=== PATIENT | male | born 1965 | race African-American/Black ===

== ENCOUNTER 2017-07-24 11:50 | Inpatient (IN) | payer OTHER ==
[2017-07-24 13:15] VITALS: BMI 29.0
[2017-07-24] MEDS ORDERED: MENTHOL/PHENOL 1 EACH UD MM PRN (16:29)
[2017-07-24] MEDS ORDERED: METHADONE HCL 10 MG TABLET (FOR DETOX USE ONLY) PO ONE ×2 (16:29→23:00)
[2017-07-24] MEDS ORDERED: MAG HYDROX/AL HYDROX/SIMETH 30 ML UNIT-DOSE CUP PO PRN (16:29)
[2017-07-24] MEDS ORDERED: MAGNESIUM CITRATE 300 ML BOTTLE PO PRN (16:29)
[2017-07-24] MEDS ORDERED: MAGNESIUM HYDROX 2400MG/30ML ORAL SUSPENSION 30 ML CUP PO PRN (16:29)
[2017-07-24] MEDS ORDERED: IBUPROFEN 400 MG TABLET (FP) PO PRN (16:29)
[2017-07-24] MEDS ORDERED: LOPERAMIDE HCL 2 MG CAPSULE PO PRN (16:29)
[2017-07-24] MEDS ORDERED: ACETAMINOPHEN 325 MG TABLET (FP) PO PRN (16:29)
[2017-07-24] MEDS ORDERED: NICOTINE POLACRILEX 2 MG GUM BUC PRN (16:29)
[2017-07-24] MEDS ORDERED: P-EPHED 60MG/TRIPROLIDI 2.5MG TABLET PO PRN (16:29)
[2017-07-24] MEDS ORDERED: guaiFENesin/D-METHORPHAN HB 10 ML UNIT-DOSE CUPS PO PRN (16:29)
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
[2017-07-24] MEDS ORDERED: ALBUTEROL SO4 18 GM HFA INHALER IH PRN (16:31)
[2017-07-24] MEDS: ASPIRIN 81 MG CHEWABLE TABLETS PO SCH (17:52)
[2017-07-24] MEDS: diazePAM 5 MG TABLET PO PRN ×2 (17:52→22:07)
[2017-07-24] MEDS: NICOTINE 14 MG/24 HOURS TOPICAL PATCH TD SCH (17:52)
[2017-07-24] MEDS: THIAMINE HCL 100 MG TABLET (FP) PO SCH (22:07)
[2017-07-24] MEDS: BRIMONIDINE TARTRATE 0.2% OPHTHALMIC 5 ML BOTTLE OU SCH (22:07)
[2017-07-24] MEDS: LATANOPROST 0.005% OPHTH SOLN 2.5ML BOTTLE OU SCH (22:09)
[2017-07-25 03:49] LABS: URINE APPEARANCE CLEAR; URINE BILIRUBIN NEGATIVE (NEGATIVE); URINE BLOOD NEGATIVE (NEGATIVE); URINE COLOR LTYELLOW; URINE GLUCOSE (UA) 1+ (NEGATIVE); URINE KETONE NEGATIVE (NEGATIVE); URINE LEUK ESTERASE NEGATIVE (NEGATIVE); URINE NITRITE NEGATIVE (NEGATIVE); URINE PROTEIN NEGATIVE (NEGATIVE); URINE UROBILINOGEN NEGATIVE mg/dL (0.2-1.0)
[2017-07-25] MEDS: metFORMIN HCL 500 MG TABLET (FP) PO SCH ×2 (06:34→17:29)
[2017-07-25] MEDS: glipiZIDE 10 MG TABLET (FP) PO SCH ×2 (06:34→17:29)
[2017-07-25] MEDS ORDERED: diphenhydrAMINE HCL 25 MG CAPSULE (FP) PO ONE (09:24)
[2017-07-25] MEDS ORDERED: METHADONE HCL 10 MG TABLET (FOR DETOX USE ONLY) PO ONE (10:00)
[2017-07-25] MEDS ORDERED: BACITRACIN 15 GM TUBE TOPICAL OINTMENT TP SCH (10:00)
[2017-07-25 10:15] LABS: ALBUMIN 2.9 g/dl (3.4-5.0); ANION GAP 6 (8-16); BLOOD UREA NITROGEN 14 mg/dL (7-18); CALCIUM 8.1 mg/dL (8.5-10.1); CHLORIDE 106 mmol/L (98-107); CO2 28 mmol/L (21-32); CREATININE 0.8 mg/dL (0.7-1.3); SGOT/AST 17 U/L (15-37); SGPT/ALT 22 U/L (12-78); SODIUM 140 mmol/L (136-145)
[2017-07-25 10:17] LABS: ALK PHOS 72 U/L (45-117); BILIRUBIN,TOTAL 0.3 mg/dL (0.2-1.0); TOT PROT 6.9 g/dl (6.4-8.2)
[2017-07-25 10:18] LABS: HEMOGLOBIN 10.4 GM/dL (11.7-16.9); MCH 30.6 pg (25.7-33.7); MCHC 32.4 g/dl (32.0-35.9); MEAN CELL VOLUME 94.4 fl (80-96); MEAN PLT VOLUME 9.1 fl (7.5-11.1); PLATELET COUNT 214 K/MM3 (134-434); RBC 3.39 M/mm3 (4.00-5.60); RDW 16.4 % (11.9-15.9); WHITE BLOOD COUNT 7.5 K/mm3 (4.0-10.0)
[2017-07-25] MEDS: ASPIRIN 81 MG CHEWABLE TABLETS PO SCH (10:22)
[2017-07-25] MEDS: BRIMONIDINE TARTRATE 0.2% OPHTHALMIC 5 ML BOTTLE OU SCH ×2 (10:22→22:11)
[2017-07-25] MEDS: PRENATAL VITAMINS W/ FOLIC ACID TABLET (FP) PO SCH (10:22)
[2017-07-25] MEDS: BACITRACIN 0.9 GM PACKET TP SCH ×2 (10:22→22:06)
[2017-07-25] MEDS: NICOTINE 14 MG/24 HOURS TOPICAL PATCH TD SCH (10:23)
[2017-07-25 10:39] LABS: GLUCOSE,RANDOM 38 mg/dL (74-106)
--- NOTE | 2017-07-25 11:29 | EKG ---
Test Reason : Blood Pressure : / mmHG Vent. Rate : 078 BPM Atrial Rate : 078 BPM P-R Int : 132 ms QRS Dur : 080 ms QT Int : 396 ms P-R-T Axes : 074 058 046 degrees QTc Int : 451 ms NORMAL SINUS RHYTHM NORMAL ECG NO PREVIOUS ECGS AVAILABLE BASELINE ARTIFACT Confirmed by GERDA MCPHERSON, GEORGE ([id number]) on 07/25/2017 11:28:23 AM Referred By: Confirmed By:GEORGE LORENZ MD
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
[2017-07-25] MEDS: HYDROCORTISONE 1% TOPICAL OINT 30 GM TUBE TP SCH ×2 (12:27→22:06)
--- NOTE | 2017-07-25 15:24 | PN ---
S COWS - Scale Resting Pulse: 0= [place] 80 or Below Sweatin= No chills or Flushing Restless Observation: 1= Difficult to Sit Still Pupil Size: 0= Normal to Room Light Bone or Joint Aches: 2= Severe Diffuse Aches Runny Nose/ Eye Tearin= None GI Upset > 30mins: 1= Stomach Cramp Tremor Observation of Outstretched Hands: 2= Slight Tremor Visible Yawning Observation: 2= >3x During Session Anxiety or Irritability: 2=Irritable/Anxious Goose Flesh Skin: 3=Piloerection COWS Score: 13 BHS Progress Note (SOAP) Subjective: Anxious, Tremors, Body Aches. Objective: PT. A & O X 3, OBSERVED AMBULATING ON UNIT. NO ACUTE DISTRESS. 07/25/17 15:22 Vital Signs Temperature 97.8 F 07/25/17 13:55 Pulse Rate 80 07/25/17 13:55 Respiratory Rate 17 07/25/17 13:55 Blood Pressure 109/59 07/25/17 13:55 O2 Sat by Pulse Oximetry (%) Laboratory Tests 07/24/17 07/24/17 07/25/17 14:04 23:31 05:13 WBC RBC Hgb Hct MCV MCH MCHC RDW Plt Count MPV Sodium Potassium Chloride Carbon Dioxide Anion Gap BUN Creatinine Creat Clearance w eGFR POC Glucometer 129 144 Random Glucose Calcium Total Bilirubin AST ALT Alkaline Phosphatase Total Protein Albumin Urine Color Ltyellow Urine Appearance Clear Urine pH 5.0 Ur Specific [place] 1.010 Urine Protein Negative Urine Glucose (UA) 1+ H Urine Ketones Negative Urine Blood Negative Urine Nitrite Negative Urine Bilirubin Negative Urine Urobilinogen Negative Ur Leukocyte Esterase Negative RPR Titer 07/25/17 07/25/17 07/25/17 08:00 08:00 08:00 WBC 7.5 RBC 3.39 L D Hgb 10.4 L D Hct 32.0 L D MCV 94.4 MCH 30.6 MCHC 32.4 RDW 16.4 H D Plt Count 214 D MPV 9.1 Sodium 140 Potassium 4.0 Chloride 106 Carbon Dioxide 28 Anion Gap 6 L BUN 14 Creatinine 0.8 Creat Clearance w eGFR > 60 POC Glucometer Random Glucose 38 L* D Calcium 8.1 L Total Bilirubin 0.3 AST 17 ALT 22 D Alkaline Phosphatase 72 D Total Protein 6.9 Albumin 2.9 L Urine Color Urine Appearance Urine pH Ur Specific [place] Urine Protein Urine Glucose (UA) Urine Ketones Urine Blood Urine Nitrite Urine Bilirubin Urine Urobilinogen Ur Leukocyte Esterase RPR Titer Nonreactive LABS NOTED. ADMISSION RANDOM GLUCOSE LEVEL AND AM FASTING BGM NOTED. PATIENT DISPLAYING NO OVERT SYMPTOMS OF HYPOGLYCEMIA AT THIS TIME. PATIENT A & O X 3, ABLE TO AMBULATE UNASSISTED ON UNIT AND WITHOUT DIFFICULTY. 07/25/17 16:59 Assessment: 07/25/17 15:23 WITHDRAWAL SYMPTOMS. Plan: CONTINUE DETOX. FASTING GLUCOSE LEVEL TOMORROW AM. CONTINUE TO MONITOR BGM'S.
[2017-07-25] MEDS: diazePAM 5 MG TABLET PO PRN ×2 (17:31→22:07)
[2017-07-25] MEDS: QUEtiapine FUMARATE 50 MG TABLET PO SCH (22:06)
[2017-07-25] MEDS: LATANOPROST 0.005% OPHTH SOLN 2.5ML BOTTLE OU SCH (22:07)
[2017-07-25] MEDS: DIVALPROEX SODIUM 500 MG TABLET E.C. PO SCH (22:07)
[2017-07-25] MEDS: THIAMINE HCL 100 MG TABLET (FP) PO SCH (22:08)
[2017-07-26] MEDS: glipiZIDE 10 MG TABLET (FP) PO SCH ×2 (06:24→17:16)
[2017-07-26] MEDS: metFORMIN HCL 500 MG TABLET (FP) PO SCH ×2 (06:24→17:16)
[2017-07-26] MEDS ORDERED: METHADONE HCL 5 MG TABLET (FOR DETOX USE ONLY) PO ONE (10:00)
[2017-07-26] MEDS: BRIMONIDINE TARTRATE 0.2% OPHTHALMIC 5 ML BOTTLE OU SCH ×2 (10:09→22:23)
[2017-07-26] MEDS: BACITRACIN 0.9 GM PACKET TP SCH ×2 (10:09→22:23)
[2017-07-26] MEDS: NICOTINE 14 MG/24 HOURS TOPICAL PATCH TD SCH (10:10)
[2017-07-26] MEDS: ASPIRIN 81 MG CHEWABLE TABLETS PO SCH (10:10)
[2017-07-26] MEDS: HYDROCORTISONE 1% TOPICAL OINT 30 GM TUBE TP SCH ×2 (10:10→22:23)
[2017-07-26] MEDS: DIVALPROEX SODIUM 500 MG TABLET E.C. PO SCH ×2 (10:10→22:23)
[2017-07-26] MEDS: PRENATAL VITAMINS W/ FOLIC ACID TABLET (FP) PO SCH (10:10)
--- NOTE | 2017-07-26 16:12 | PN ---
S COWS - Scale Resting Pulse: 1= [place] 81-100 Sweatin= Beads of Sweat on Face Restless Observation: 3= Extraneous Movement Pupil Size: 0= Normal to Room Light Bone or Joint Aches: 2= Severe Diffuse Aches Runny Nose/ Eye Tearin= Runny Nose/Eyes GI Upset > 30mins: 2= Nausea/Diarrhea Tremor Observation of Outstretched Hands: 2= Slight Tremor Visible Yawning Observation: 0= None Anxiety or Irritability: 2=Irritable/Anxious Goose Flesh Skin: 0=Smooth Skin COWS Score: 17 S Progress Note (SOAP) Subjective: Sweating, tremor, chills, N/D Objective: 07/26/17 16:08 Last Vital Signs Temp Pulse Resp BP Pulse Ox 95.8 F L 93 H 18 124/72 07/26/17 13:36 07/26/17 13:36 07/26/17 13:36 07/26/17 13:36 Laboratory Tests 07/24/17 07/24/17 07/25/17 14:04 23:31 05:13 WBC RBC Hgb Hct MCV MCH MCHC RDW Plt Count MPV Sodium Potassium Chloride Carbon Dioxide Anion Gap BUN Creatinine Creat Clearance w eGFR POC Glucometer 129 144 Random Glucose Fasting Glucose Calcium Total Bilirubin AST ALT Alkaline Phosphatase Total Protein Albumin Urine Color Ltyellow Urine Appearance Clear Urine pH 5.0 Ur Specific [place] 1.010 Urine Protein Negative Urine Glucose (UA) 1+ H Urine Ketones Negative Urine Blood Negative Urine Nitrite Negative Urine Bilirubin Negative Urine Urobilinogen Negative Ur Leukocyte Esterase Negative Valproic Acid RPR Titer 07/25/17 07/25/17 07/25/17 08:00 08:00 08:00 WBC 7.5 RBC 3.39 L D Hgb 10.4 L D Hct 32.0 L D MCV 94.4 MCH 30.6 MCHC 32.4 RDW 16.4 H D Plt Count 214 D MPV 9.1 Sodium 140 Potassium 4.0 Chloride 106 Carbon Dioxide 28 Anion Gap 6 L BUN 14 Creatinine 0.8 Creat Clearance w eGFR > 60 POC Glucometer Random Glucose 38 L* D Fasting Glucose Calcium 8.1 L Total Bilirubin 0.3 AST 17 ALT 22 D Alkaline Phosphatase 72 D Total Protein 6.9 Albumin 2.9 L Urine Color Urine Appearance Urine pH Ur Specific [place] Urine Protein Urine Glucose (UA) Urine Ketones Urine Blood Urine Nitrite Urine Bilirubin Urine Urobilinogen Ur Leukocyte Esterase Valproic Acid RPR Titer Nonreactive 07/26/17 07/26/17 07/26/17 05:29 07:45 07:45 WBC RBC Hgb Hct MCV MCH MCHC RDW Plt Count MPV Sodium Potassium Chloride Carbon Dioxide Anion Gap BUN Creatinine Creat Clearance w eGFR POC Glucometer 116 Random Glucose Fasting Glucose 173 H Calcium Total Bilirubin AST ALT Alkaline Phosphatase Total Protein Albumin Urine Color Urine Appearance Urine pH Ur Specific [place] Urine Protein Urine Glucose (UA) Urine Ketones Urine Blood Urine Nitrite Urine Bilirubin Urine Urobilinogen Ur Leukocyte Esterase Valproic Acid 5.395 L RPR Titer Labs noted: hyperglycemia Assessment: 07/26/17 16:09 Withdrawal symptoms Noted with hyperglycemia secondary to DMT2 Plan: Continue detox Encouraged to drink lots of water for hydration Hyperglycemia secondary to DMT2: continue diabetic regimen, encouraged adherence to diabetic diet
[2017-07-26] MEDS: THIAMINE HCL 100 MG TABLET (FP) PO SCH (22:22)
[2017-07-26] MEDS: diazePAM 5 MG TABLET PO PRN (22:22)
[2017-07-26] MEDS: QUEtiapine FUMARATE 50 MG TABLET PO SCH (22:23)
[2017-07-26] MEDS: LATANOPROST 0.005% OPHTH SOLN 2.5ML BOTTLE OU SCH (22:24)
[2017-07-27] MEDS: metFORMIN HCL 500 MG TABLET (FP) PO SCH ×2 (07:18→17:16)
[2017-07-27] MEDS: glipiZIDE 10 MG TABLET (FP) PO SCH ×2 (07:18→17:17)
[2017-07-27] MEDS: PRENATAL VITAMINS W/ FOLIC ACID TABLET (FP) PO SCH (09:35)
[2017-07-27] MEDS: diazePAM 5 MG TABLET PO PRN (09:35)
[2017-07-27] MEDS: DIVALPROEX SODIUM 500 MG TABLET E.C. PO SCH ×2 (09:35→22:27)
[2017-07-27] MEDS: ASPIRIN 81 MG CHEWABLE TABLETS PO SCH (09:35)
[2017-07-27] MEDS: BACITRACIN 0.9 GM PACKET TP SCH ×2 (09:35→22:27)
[2017-07-27] MEDS: BRIMONIDINE TARTRATE 0.2% OPHTHALMIC 5 ML BOTTLE OU SCH ×2 (09:35→22:28)
[2017-07-27] MEDS: HYDROCORTISONE 1% TOPICAL OINT 30 GM TUBE TP SCH ×2 (09:36→22:28)
[2017-07-27] MEDS: NICOTINE 14 MG/24 HOURS TOPICAL PATCH TD SCH (09:37)
[2017-07-27] MEDS ORDERED: METHADONE HCL 5 MG TABLET (FOR DETOX USE ONLY) PO ONE (10:00)
--- NOTE | 2017-07-27 14:04 | PN ---
BHS Progress Note (SOAP) Subjective: DECREASED ANXIETY,SWEATS,IRRITABILITY. ALERT O X 3. Objective: 07/27/17 16:39 Vital Signs Temperature 97.7 F 07/27/17 13:46 Pulse Rate 92 H 07/27/17 13:46 Respiratory Rate 18 07/27/17 13:46 Blood Pressure 119/68 07/27/17 13:46 O2 Sat by Pulse Oximetry (%) Laboratory Last Values WBC 7.5 K/mm3 (4.0-10.0) 07/25/17 08:00 RBC 3.39 M/mm3 (4.00-5.60) L D 07/25/17 08:00 Hgb 10.4 GM/dL (11.7-16.9) L D 07/25/17 08:00 Hct 32.0 % (35.4-49) L D 07/25/17 08:00 MCV 94.4 fl (80-96) 07/25/17 08:00 MCH 30.6 pg (25.7-33.7) 07/25/17 08:00 MCHC 32.4 g/dl (32.0-35.9) 07/25/17 08:00 RDW 16.4 % (11.9-15.9) H D 07/25/17 08:00 Plt Count 214 K/MM3 (134-434) D 07/25/17 08:00 MPV 9.1 fl (7.5-11.1) 07/25/17 08:00 Sodium 140 mmol/L (136-145) 07/25/17 08:00 Potassium 4.0 mmol/L (3.5-5.1) 07/25/17 08:00 Chloride 106 mmol/L (98-107) 07/25/17 08:00 Carbon Dioxide 28 mmol/L (21-32) 07/25/17 08:00 Anion Gap 6 (8-16) L 07/25/17 08:00 BUN 14 mg/dL (7-18) 07/25/17 08:00 Creatinine 0.8 mg/dL (0.7-1.3) 07/25/17 08:00 Creat Clearance w eGFR > 60 (>60) 07/25/17 08:00 POC Glucometer 144 UNITS (80-120) 07/27/17 05:40 Random Glucose 38 mg/dL (74-106) L* D 07/25/17 08:00 Fasting Glucose 173 mg/dL (70-105) H 07/26/17 07:45 Calcium 8.1 mg/dL (8.5-10.1) L 07/25/17 08:00 Total Bilirubin 0.3 mg/dL (0.2-1.0) 07/25/17 08:00 AST 17 U/L (15-37) 07/25/17 08:00 ALT 22 U/L (12-78) D 07/25/17 08:00 Alkaline Phosphatase 72 U/L (45-117) D 07/25/17 08:00 Total Protein 6.9 g/dl (6.4-8.2) 07/25/17 08:00 Albumin 2.9 g/dl (3.4-5.0) L 07/25/17 08:00 Urine Color Ltyellow 07/24/17 23:31 Urine Appearance Clear 07/24/17 23:31 Urine pH 5.0 (5.0-8.0) 07/24/17 23:31 Ur Specific [place] 1.010 (1.001-1.035) 07/24/17 23:31 Urine Protein Negative (NEGATIVE) 07/24/17 23:31 Urine Glucose (UA) 1+ (NEGATIVE) H 07/24/17 23:31 Urine Ketones Negative (NEGATIVE) 07/24/17 23:31 Urine Blood Negative (NEGATIVE) 07/24/17 23:31 Urine Nitrite Negative (NEGATIVE) 07/24/17 23:31 Urine Bilirubin Negative (NEGATIVE) 07/24/17 23:31 Urine Urobilinogen Negative mg/dL (0.2-1.0) 07/24/17 23:31 Ur Leukocyte Esterase Negative (NEGATIVE) 07/24/17 23:31 Valproic Acid 5.395 ug/ml (50-100) L 07/26/17 07:45 RPR Titer Nonreactive (NONREACTIVE) 07/25/17 08:00 Assessment: 07/27/17 16:39 WITHDRAWAL SX Plan: CONTINUE DETOX
[2017-07-27] MEDS: THIAMINE HCL 100 MG TABLET (FP) PO SCH (22:27)
[2017-07-27] MEDS: QUEtiapine FUMARATE 50 MG TABLET PO SCH (22:27)
[2017-07-27] MEDS: LATANOPROST 0.005% OPHTH SOLN 2.5ML BOTTLE OU SCH (22:28)
[2017-07-28] MEDS: metFORMIN HCL 500 MG TABLET (FP) PO SCH ×2 (07:02→16:53)
[2017-07-28] MEDS: glipiZIDE 10 MG TABLET (FP) PO SCH ×2 (07:03→16:54)
[2017-07-28] MEDS ORDERED: METHADONE HCL 10 MG TABLET (FOR DETOX USE ONLY) PO ONE (10:00)
[2017-07-28] MEDS: ASPIRIN 81 MG CHEWABLE TABLETS PO SCH (10:09)
[2017-07-28] MEDS: BACITRACIN 0.9 GM PACKET TP SCH ×2 (10:09→22:08)
[2017-07-28] MEDS: PRENATAL VITAMINS W/ FOLIC ACID TABLET (FP) PO SCH (10:09)
[2017-07-28] MEDS: BRIMONIDINE TARTRATE 0.2% OPHTHALMIC 5 ML BOTTLE OU SCH ×2 (10:09→22:08)
[2017-07-28] MEDS: DIVALPROEX SODIUM 500 MG TABLET E.C. PO SCH ×2 (10:09→22:08)
[2017-07-28] MEDS: NICOTINE 14 MG/24 HOURS TOPICAL PATCH TD SCH (10:10)
[2017-07-28] MEDS: HYDROCORTISONE 1% TOPICAL OINT 30 GM TUBE TP SCH ×2 (10:10→22:08)
--- NOTE | 2017-07-28 11:44 | PN ---
BHS Progress Note (SOAP) Subjective: DECREASED ANXIETY,TREMORS. C/O SWEATS AND LEFT LEG PAIN. Objective: 07/28/17 11:43 Vital Signs Temperature 98.6 F 07/28/17 09:54 Pulse Rate 99 H 07/28/17 09:54 Respiratory Rate 18 07/28/17 09:54 Blood Pressure 137/70 07/28/17 09:54 O2 Sat by Pulse Oximetry (%) Laboratory Last Values WBC 7.5 K/mm3 (4.0-10.0) 07/25/17 08:00 RBC 3.39 M/mm3 (4.00-5.60) L D 07/25/17 08:00 Hgb 10.4 GM/dL (11.7-16.9) L D 07/25/17 08:00 Hct 32.0 % (35.4-49) L D 07/25/17 08:00 MCV 94.4 fl (80-96) 07/25/17 08:00 MCH 30.6 pg (25.7-33.7) 07/25/17 08:00 MCHC 32.4 g/dl (32.0-35.9) 07/25/17 08:00 RDW 16.4 % (11.9-15.9) H D 07/25/17 08:00 Plt Count 214 K/MM3 (134-434) D 07/25/17 08:00 MPV 9.1 fl (7.5-11.1) 07/25/17 08:00 Sodium 140 mmol/L (136-145) 07/25/17 08:00 Potassium 4.0 mmol/L (3.5-5.1) 07/25/17 08:00 Chloride 106 mmol/L (98-107) 07/25/17 08:00 Carbon Dioxide 28 mmol/L (21-32) 07/25/17 08:00 Anion Gap 6 (8-16) L 07/25/17 08:00 BUN 14 mg/dL (7-18) 07/25/17 08:00 Creatinine 0.8 mg/dL (0.7-1.3) 07/25/17 08:00 Creat Clearance w eGFR > 60 (>60) 07/25/17 08:00 POC Glucometer 116 UNITS (80-120) 07/28/17 05:37 Random Glucose 38 mg/dL (74-106) L* D 07/25/17 08:00 Fasting Glucose 173 mg/dL (70-105) H 07/26/17 07:45 Calcium 8.1 mg/dL (8.5-10.1) L 07/25/17 08:00 Total Bilirubin 0.3 mg/dL (0.2-1.0) 07/25/17 08:00 AST 17 U/L (15-37) 07/25/17 08:00 ALT 22 U/L (12-78) D 07/25/17 08:00 Alkaline Phosphatase 72 U/L (45-117) D 07/25/17 08:00 Total Protein 6.9 g/dl (6.4-8.2) 07/25/17 08:00 Albumin 2.9 g/dl (3.4-5.0) L 07/25/17 08:00 Urine Color Ltyellow 07/24/17 23:31 Urine Appearance Clear 07/24/17 23:31 Urine pH 5.0 (5.0-8.0) 07/24/17 23:31 Ur Specific [place] 1.010 (1.001-1.035) 07/24/17 23:31 Urine Protein Negative (NEGATIVE) 07/24/17 23:31 Urine Glucose (UA) 1+ (NEGATIVE) H 07/24/17 23:31 Urine Ketones Negative (NEGATIVE) 07/24/17 23:31 Urine Blood Negative (NEGATIVE) 07/24/17 23:31 Urine Nitrite Negative (NEGATIVE) 07/24/17 23:31 Urine Bilirubin Negative (NEGATIVE) 07/24/17 23:31 Urine Urobilinogen Negative mg/dL (0.2-1.0) 07/24/17 23:31 Ur Leukocyte Esterase Negative (NEGATIVE) 07/24/17 23:31 Valproic Acid 5.395 ug/ml (50-100) L 07/26/17 07:45 RPR Titer Nonreactive (NONREACTIVE) 07/25/17 08:00 Assessment: 07/28/17 11:43 WITHDRAWAL SX Plan: CONTINUE DETOX MOTRIN PRN
[2017-07-28] MEDS: THIAMINE HCL 100 MG TABLET (FP) PO SCH (22:08)
[2017-07-28] MEDS: QUEtiapine FUMARATE 50 MG TABLET PO SCH (22:08)
[2017-07-28] MEDS: LATANOPROST 0.005% OPHTH SOLN 2.5ML BOTTLE OU SCH (22:09)
[2017-07-29] MEDS ORDERED: METHADONE HCL 5 MG TABLET (FOR DETOX USE ONLY) PO ONE (06:00)
[2017-07-29] MEDS: metFORMIN HCL 500 MG TABLET (FP) PO SCH (07:27)
[2017-07-29] MEDS: glipiZIDE 10 MG TABLET (FP) PO SCH (07:28)
--- NOTE | 2017-07-29 08:55 | DS ---
[facility] Detox Discharge Summary Admission Date: 07/24/17 Discharge Date: 07/29/17 - History Additional Comments: DETOX COMPLETED. ALERT O X 3. Pertinent Past History: SEE DX BELOW - Physical Exam Results Vital Signs: Vital Signs Temperature 97 F L 07/29/17 06:12 Pulse Rate 94 H 07/29/17 06:12 Respiratory Rate 18 07/29/17 06:12 Blood Pressure 141/75 07/29/17 06:12 O2 Sat by Pulse Oximetry (%) Pertinent Admission Physical Exam Findings: WITHDRAWAL SX - Treatment Hospital Course: Detox Protocol Followed, Detoxed Safely, Responded well, Discharged Condition Good - Medication Discharge Medications: Ambulatory Orders Divalproex [Depakote -] 500 mg PO BID 05/21/15 Brimonidine Tartrate [Alphagan 0.2% -] 1 drop OP BID 11/29/15 Risperidone [Risperdal] 2 mg PO BID 11/29/15 Albuterol Sulfate Inhaler - [Ventolin HFA Inhaler -] 2 inh IH Q4H PRN #1 inhaler 12/26/15 Aspirin [ASA -] 81 mg PO DAILY #30 tab.chew 12/26/15 Glipizide [Glucotrol -] 10 mg PO BIDAC #60 tablet 12/26/15 Latanoprost 0.005% Eye Drops [Xalatan 0.005% Eye Drops -] 1 drop OP HS #1 drops 12/26/15 Metformin HCl [Glucophage -] 500 mg PO BID@0700,1630 #60 tablet 12/26/15 Benztropine Mesylate [Cogentin -] 0.5 mg PO BID #30 tablet 12/27/15 Mirtazapine [Remeron -] 15 mg PO HS #30 tablet 12/27/15 Quetiapine Fumarate [Seroquel -] 300 mg PO HS 07/24/17 - Diagnosis (1) Opioid dependence with withdrawal Current Visit: Yes Status: Acute (2) Asthma Current Visit: Yes Status: Chronic (3) DM Diabetes mellitus type 2 Current Visit: Yes Status: Chronic (4) Nicotine dependence Current Visit: Yes Status: Acute Qualifiers: Nicotine product type: cigarettes Substance use status: in withdrawal Qualified Code(s): F17.213 - Nicotine dependence, cigarettes, with withdrawal (5) Cocaine dependence, uncomplicated Current Visit: Yes Status: Acute (6) HLD (hyperlipidemia) Current Visit: Yes Status: Chronic Qualifiers: Hyperlipidemia type: unspecified Qualified Code(s): E78.5 - Hyperlipidemia , unspecified (7) HTN (hypertension) Current Visit: Yes Status: Chronic Qualifiers: Hypertension type: essential hypertension Qualified Code(s): I10 - Essential (primary) hypertension - AMA Did Patient Leave Against Medical Advice: No
[2017-07-29 09:15] VITALS: BP 128/77; PULSE 96; TEMP 98.7
== END 2017-07-29 09:37 | disposition home or self-care (01) | DRG 773 ==
LOC: YASAS 11:50 → Y3N 16:23
PROVIDERS: ADMIT Internal Medicine; ATTEND Internal Medicine
PROC: HZ2ZZZZ Detoxification Services for Substance Abuse Treatment (ICD-10-PCS; principal; 2017-07-24)
DX: F11.23 Opioid dependence with withdrawal (principal); F14.20 Cocaine dependence, uncomplicated; F17.213 Nicotine dependence, cigarettes, with withdrawal; F32.9 Major depressive disorder, single episode, unspecified; F20.0 Paranoid schizophrenia; I10 Essential (primary) hypertension; E78.5 Hyperlipidemia, unspecified; E11.65 Type 2 diabetes mellitus with hyperglycemia; J45.909 Unspecified asthma, uncomplicated; R76.11 Nonspecific reaction to tuberculin skin test without active tuberculosis; H40.9 Unspecified glaucoma; G47.00 Insomnia, unspecified; Z88.0 Allergy status to penicillin; Z91.018 Allergy to other foods; Z79.84 Long term (current) use of oral hypoglycemic drugs
CPT/HCPCS: 36415; 71046-TC; 80053; 80164; 81003; 82947; 85027; 86593; 93005; 93010

== ENCOUNTER 2017-11-30 19:09 | Inpatient (IN) | payer OTHER ==
[2017-11-30 23:34] VITALS: BMI 27.3
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
[2017-12-01] MEDS ORDERED: ACETAMINOPHEN 325 MG TABLET (FP) PO PRN (01:38)
[2017-12-01] MEDS ORDERED: MAGNESIUM CITRATE 300 ML BOTTLE PO PRN (01:38)
[2017-12-01] MEDS ORDERED: NICOTINE POLACRILEX 2 MG GUM BC PRN (01:38)
[2017-12-01] MEDS ORDERED: chlordiazePOXIDE HCL 25 MG CAPSULE PO ONE (01:38)
[2017-12-01] MEDS ORDERED: MAGNESIUM HYDROX 2400MG/30ML ORAL SUSPENSION 30 ML CUP PO PRN (01:38)
[2017-12-01] MEDS ORDERED: MAG HYDROX/AL HYDROX/SIMETH 30 ML UNIT-DOSE CUP PO PRN (01:38)
[2017-12-01] MEDS ORDERED: MENTHOL/PHENOL 1 EACH UD MM PRN (01:38)
[2017-12-01] MEDS ORDERED: chlordiazePOXIDE HCL 25 MG CAPSULE PO PRN (01:38)
[2017-12-01] MEDS ORDERED: LOPERAMIDE HCL 2 MG CAPSULE PO PRN (01:38)
[2017-12-01] MEDS ORDERED: guaiFENesin/D-METHORPHAN HB 10 ML UNIT-DOSE CUPS PO PRN (01:38)
[2017-12-01] MEDS ORDERED: IBUPROFEN 400 MG TABLET (FP) PO PRN (01:38)
[2017-12-01] MEDS ORDERED: P-EPHED 60MG/TRIPROLIDI 2.5MG TABLET PO PRN (01:38)
[2017-12-01] MEDS ORDERED: ALBUTEROL SO4 18 GM HFA INHALER IH PRN (01:40)
[2017-12-01] MEDS: chlordiazePOXIDE HCL 25 MG CAPSULE PO SCH ×4 (05:55→22:16)
[2017-12-01 09:49] LABS: HEMATOCRIT 34.3 % (35.4-49); HEMOGLOBIN 11.7 GM/dL (11.7-16.9); MCH 31.5 pg (25.7-33.7); MCHC 34.2 g/dl (32.0-35.9); MEAN CELL VOLUME 92.1 fl (80-96); MEAN PLT VOLUME 8.6 fl (7.5-11.1); PLATELET COUNT 305 K/MM3 (134-434); RBC 3.72 M/mm3 (4.00-5.60); RDW 16.5 % (11.9-15.9); WHITE BLOOD COUNT 4.9 K/mm3 (4.0-10.0)
[2017-12-01 09:51] LABS: URINE APPEARANCE CLEAR; URINE BILIRUBIN NEGATIVE (<2.0 mg/dL); URINE COLOR LTYELLOW; URINE GLUCOSE (UA) NEGATIVE (NEGATIVE); URINE KETONE NEGATIVE (NEGATIVE); URINE LEUK ESTERASE NEGATIVE (NEGATIVE); URINE NITRITE NEGATIVE (NEGATIVE); URINE PROTEIN NEGATIVE (NEGATIVE)
[2017-12-01 10:02] LABS: CHLORIDE 108 mmol/L (98-107); POTASSIUM 3.9 mmol/L (3.5-5.1); SODIUM 144 mmol/L (136-145)
[2017-12-01] MEDS: PRENATAL VITAMINS W/ FOLIC ACID TABLET (FP) PO SCH (10:32)
[2017-12-01] MEDS: metFORMIN HCL 500 MG TABLET (FP) PO SCH ×2 (10:32→17:00)
[2017-12-01] MEDS: glipiZIDE 10 MG TABLET (FP) PO SCH ×2 (10:32→17:00)
[2017-12-01] MEDS: NICOTINE 14 MG/24 HOURS TOPICAL PATCH TD SCH (10:32)
[2017-12-01 10:38] LABS: ALBUMIN 2.8 g/dl (3.4-5.0); ALK PHOS 67 U/L (45-117); ANION GAP 8 (8-16); BILIRUBIN,TOTAL 0.3 mg/dL (0.2-1.0); BLOOD UREA NITROGEN 17 mg/dL (7-18); CALCIUM 8.1 mg/dL (8.5-10.1); CO2 28 mmol/L (21-32); CREATININE 0.9 mg/dL (0.7-1.3); GLUCOSE,RANDOM 121 mg/dL (74-106); SGOT/AST 20 U/L (15-37); SGPT/ALT 20 U/L (12-78); TOT PROT 6.9 g/dl (6.4-8.2)
[2017-12-01] MEDS: BRIMONIDINE TARTRATE 0.2% OPHTHALMIC 5 ML BOTTLE OU SCH ×2 (12:17→22:36)
--- NOTE | 2017-12-01 12:43 | PN ---
[facility] CIWA - CIWA Score Nausea/Vomitin-No Nausea/No Vomiting Muscle Tremors: 3 Anxiety: 3 Agitation: 2 Paroxysmal Sweats: 3 Orientation: 2-Disoriented Date<2 days Tacttile Disturbances: 2-Mild Itch/Numbness/Burn Auditory Disturbances: 0-None Visual Disturbances: 2-Mild Sensitivity Headache: 0-None Present CIWA-Ar Total Score: 17 BHS Progress Note (SOAP) Subjective: Tremors, Diarrhea, Sweating, Body Aches, Interrupted Sleep. Objective: PATIENT A & O X 2 (UNCERTAIN ABOUT CURRENT DAY / DATE). NO ACUTE DISTRESS. 12/01/17 12:41 Vital Signs Temperature 96.8 F L 12/01/17 10:44 Pulse Rate 80 12/01/17 10:44 Respiratory Rate 18 12/01/17 10:44 Blood Pressure 124/70 12/01/17 10:44 O2 Sat by Pulse Oximetry (%) Laboratory Tests 12/01/17 12/01/17 12/01/17 05:55 07:00 07:30 WBC RBC Hgb Hct MCV MCH MCHC RDW Plt Count MPV Sodium 144 Potassium 3.9 Chloride 108 H Carbon Dioxide 28 Anion Gap 8 BUN 17 D Creatinine 0.9 Creat Clearance w eGFR > 60 POC Glucometer 112 Random Glucose 121 H D Calcium 8.1 L Total Bilirubin 0.3 AST 20 ALT 20 Alkaline Phosphatase 67 Total Protein 6.9 Albumin 2.8 L Urine Color Ltyellow Urine Appearance Clear Urine pH 7.0 D Ur Specific [place] 1.021 Urine Protein Negative Urine Glucose (UA) Negative Urine Ketones Negative Urine Blood Negative Urine Nitrite Negative Urine Bilirubin Negative Urine Urobilinogen 2.0 Ur Leukocyte Esterase Negative 12/01/17 07:30 WBC 4.9 D RBC 3.72 L Hgb 11.7 D Hct 34.3 L MCV 92.1 MCH 31.5 MCHC 34.2 RDW 16.5 H Plt Count 305 D MPV 8.6 Sodium Potassium Chloride Carbon Dioxide Anion Gap BUN Creatinine Creat Clearance w eGFR POC Glucometer Random Glucose Calcium Total Bilirubin AST ALT Alkaline Phosphatase Total Protein Albumin Urine Color Urine Appearance Urine pH Ur Specific [place] Urine Protein Urine Glucose (UA) Urine Ketones Urine Blood Urine Nitrite Urine Bilirubin Urine Urobilinogen Ur Leukocyte Esterase LABS NOTED. RPR, HIV AB RESULTS PENDING. 12/01/17 12:42 Assessment: 12/01/17 12:41 WITHDRAWAL SYMPTOMS. Plan: CONTINUE DETOX. INCREASE DAILY PO FLUID INTAKE.
--- NOTE | 2017-12-01 13:51 | EKG ---
Test Reason : Blood Pressure : / mmHG Vent. Rate : 071 BPM Atrial Rate : 071 BPM P-R Int : 136 ms QRS Dur : 086 ms QT Int : 402 ms P-R-T Axes : 068 063 037 degrees QTc Int : 436 ms NORMAL SINUS RHYTHM NORMAL ECG WHEN COMPARED WITH ECG OF 24-JUL-2017 18:28, NO SIGNIFICANT CHANGE WAS FOUND Confirmed by MD Healy Edward ([id number]) on 12/01/2017 1:50:27 PM Referred By: Confirmed By:Chad Healy MD
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
[2017-12-01] MEDS ORDERED: MELATONIN 5 MG TABLETS PO PRN (22:00)
[2017-12-01] MEDS ORDERED: BENZTROPINE MESYLATE 1 MG TABLET (FP) PO SCH (22:00)
[2017-12-01] MEDS: QUEtiapine FUMARATE 200 MG TABLET PO SCH (22:16)
[2017-12-01] MEDS: THIAMINE HCL 100 MG TABLET (FP) PO SCH (22:16)
[2017-12-01] MEDS: DIVALPROEX SODIUM 500 MG TABLET E.C. PO SCH (22:16)
[2017-12-01] MEDS: LATANOPROST 0.005% OPHTH SOLN 2.5ML BOTTLE OU SCH (22:37)
[2017-12-02] MEDS: chlordiazePOXIDE HCL 25 MG CAPSULE PO SCH ×4 (05:32→22:18)
[2017-12-02] MEDS: glipiZIDE 10 MG TABLET (FP) PO SCH ×2 (08:18→17:17)
[2017-12-02] MEDS: metFORMIN HCL 500 MG TABLET (FP) PO SCH ×2 (08:18→17:16)
[2017-12-02] MEDS: BRIMONIDINE TARTRATE 0.2% OPHTHALMIC 5 ML BOTTLE OU SCH ×2 (10:53→22:18)
[2017-12-02] MEDS: DIVALPROEX SODIUM 500 MG TABLET E.C. PO SCH ×2 (10:54→22:18)
[2017-12-02] MEDS: NICOTINE 14 MG/24 HOURS TOPICAL PATCH TD SCH (10:54)
[2017-12-02] MEDS: QUEtiapine FUMARATE 100 MG TABLET (FP) PO SCH (10:54)
[2017-12-02] MEDS: PRENATAL VITAMINS W/ FOLIC ACID TABLET (FP) PO SCH (10:54)
--- NOTE | 2017-12-02 15:56 | PN ---
[facility] CIWA - CIWA Score Nausea/Vomitin-No Nausea/No Vomiting Muscle Tremors: 4-Moderate,w/Arms Extend Anxiety: 1-Mildly Anxious Agitation: 0-Normal Activity Paroxysmal Sweats: 3 Orientation: 0-Oriented Tacttile Disturbances: 3-Moderate Itch/Numb/Burn Auditory Disturbances: 2-Mild Harshness/Frighten Visual Disturbances: 2-Mild Sensitivity Headache: 0-None Present CIWA-Ar Total Score: 15 S Progress Note (SOAP) Subjective: Tremors, Interrupted Sleep, Fatigue, Stomach Cramping, Sweating. Objective: PATIENT A & O X 3. NO ACUTE DISTRESS. 12/02/17 15:54 Vital Signs Temperature 97.7 F 12/02/17 14:51 Pulse Rate 89 12/02/17 14:51 Respiratory Rate 20 12/02/17 14:51 Blood Pressure 130/69 12/02/17 14:51 O2 Sat by Pulse Oximetry (%) Laboratory Tests 12/01/17 12/01/17 12/01/17 05:55 07:00 07:30 WBC RBC Hgb Hct MCV MCH MCHC RDW Plt Count MPV Sodium Potassium Chloride Carbon Dioxide Anion Gap BUN Creatinine Creat Clearance w eGFR POC Glucometer 112 Random Glucose Calcium Total Bilirubin AST ALT Alkaline Phosphatase Total Protein Albumin Urine Color Ltyellow Urine Appearance Clear Urine pH 7.0 D Ur Specific [place] 1.021 Urine Protein Negative Urine Glucose (UA) Negative Urine Ketones Negative Urine Blood Negative Urine Nitrite Negative Urine Bilirubin Negative Urine Urobilinogen 2.0 Ur Leukocyte Esterase Negative RPR Titer HIV 1&2 Antibody Screen Negative HIV P24 Antigen Negative 12/01/17 12/01/17 12/01/17 07:30 07:30 07:30 WBC 4.9 D RBC 3.72 L Hgb 11.7 D Hct 34.3 L MCV 92.1 MCH 31.5 MCHC 34.2 RDW 16.5 H Plt Count 305 D MPV 8.6 Sodium 144 Potassium 3.9 Chloride 108 H Carbon Dioxide 28 Anion Gap 8 BUN 17 D Creatinine 0.9 Creat Clearance w eGFR > 60 POC Glucometer Random Glucose 121 H D Calcium 8.1 L Total Bilirubin 0.3 AST 20 ALT 20 Alkaline Phosphatase 67 Total Protein 6.9 Albumin 2.8 L Urine Color Urine Appearance Urine pH Ur Specific [place] Urine Protein Urine Glucose (UA) Urine Ketones Urine Blood Urine Nitrite Urine Bilirubin Urine Urobilinogen Ur Leukocyte Esterase RPR Titer Nonreactive HIV 1&2 Antibody Screen HIV P24 Antigen 12/01/17 12/02/17 16:20 05:44 WBC RBC Hgb Hct MCV MCH MCHC RDW Plt Count MPV Sodium Potassium Chloride Carbon Dioxide Anion Gap BUN Creatinine Creat Clearance w eGFR POC Glucometer 156 116 Random Glucose Calcium Total Bilirubin AST ALT Alkaline Phosphatase Total Protein Albumin Urine Color Urine Appearance Urine pH Ur Specific [place] Urine Protein Urine Glucose (UA) Urine Ketones Urine Blood Urine Nitrite Urine Bilirubin Urine Urobilinogen Ur Leukocyte Esterase RPR Titer HIV 1&2 Antibody Screen HIV P24 Antigen LABS NOTED. Assessment: 12/02/17 15:54 WITHDRAWAL SYMPTOMS. Plan: CONTINUE DETOX.
--- NOTE | 2017-12-02 19:06 | PN ---
[facility] Progress Note Note: Psychiatry Attending's note (follow-up) : Patient re-evaluated.Earlier during the day. Bedside examination.Medical student in attendance. Mr Mejía was found sitting in his room finishing lunch. Noted as alert and fully oriented.Conversant.Coherent. Fully aware of his surroundings.Relevant and goal-directed. Patient was observed as well groomed.No complaints offered. Adherent to medications.Ambulatory.Steady gait.Feeling well. Stable mental status.
[2017-12-02] MEDS: THIAMINE HCL 100 MG TABLET (FP) PO SCH (22:17)
[2017-12-02] MEDS: QUEtiapine FUMARATE 200 MG TABLET PO SCH (22:18)
[2017-12-02] MEDS: LATANOPROST 0.005% OPHTH SOLN 2.5ML BOTTLE OU SCH (22:19)
--- NOTE | 2017-12-02 23:31 | PN ---
[facility] Progress Note Note: Vital Signs (72 hours) 11/30/17 12/01/17 12/01/17 23:32 02:04 03:58 Temperature 97.8 F 96 F L Pulse Rate 77 73 Respiratory 18 18 18 Rate Blood Pressure 145/74 125/71 12/01/17 12/01/17 12/01/17 06:21 10:44 13:44 Temperature 95.8 F L 96.8 F L 98.6 F Pulse Rate 71 80 80 Respiratory 18 18 18 Rate Blood Pressure 132/73 124/70 133/70 12/01/17 12/01/17 12/02/17 17:51 22:35 00:36 Temperature 95.1 F L 95.6 F L Pulse Rate 76 73 Respiratory 18 18 18 Rate Blood Pressure 143/75 142/79 12/02/17 12/02/17 12/02/17 03:30 06:14 06:30 Temperature 96.6 F L Pulse Rate 71 Respiratory 18 18 18 Rate Blood Pressure 138/78 12/02/17 12/02/17 12/02/17 09:25 14:51 17:51 Temperature 96.0 F L 97.7 F 95.7 F L Pulse Rate 87 89 86 Respiratory 20 20 18 Rate Blood Pressure 160/87 130/69 159/85 12/02/17 22:01 Temperature 96.4 F L Pulse Rate 97 H Respiratory 18 Rate Blood Pressure 154/92 Patient asymptomatic elevated BP Home meds reviewed patient on HCTZ 25mg QD -start patient on HTCZ 25mg QD - increase fluids - Continue to monitor
[2017-12-03] MEDS: chlordiazePOXIDE 5 MG CAPSULE PO SCH ×4 (06:50→22:59)
[2017-12-03] MEDS: metFORMIN HCL 500 MG TABLET (FP) PO SCH ×2 (07:53→17:48)
[2017-12-03] MEDS: glipiZIDE 10 MG TABLET (FP) PO SCH ×2 (07:54→17:48)
[2017-12-03] MEDS: BRIMONIDINE TARTRATE 0.2% OPHTHALMIC 5 ML BOTTLE OU SCH ×2 (10:40→22:59)
[2017-12-03] MEDS: DIVALPROEX SODIUM 500 MG TABLET E.C. PO SCH ×2 (10:40→22:59)
[2017-12-03] MEDS: ASPIRIN 81 MG CHEWABLE TABLETS PO SCH (10:40)
[2017-12-03] MEDS: QUEtiapine FUMARATE 100 MG TABLET (FP) PO SCH (10:40)
[2017-12-03] MEDS: PRENATAL VITAMINS W/ FOLIC ACID TABLET (FP) PO SCH (10:40)
[2017-12-03] MEDS: NICOTINE 14 MG/24 HOURS TOPICAL PATCH TD SCH (10:41)
[2017-12-03] MEDS: HYDROCHLOROTHIAZIDE 25 MG TABLET (FP) PO SCH (10:41)
[2017-12-03] MEDS: AMMONIUM LACTATE 12% LOTION 225 GM BOTTLE TP SCH ×2 (11:18→23:00)
--- NOTE | 2017-12-03 15:28 | PN ---
[facility] Progress Note (SOAP) Subjective: Sweating, Anxious. Objective: PATIENT A & O X 3, OBSERVED AMBULATING ON UNIT. NO ACUTE DISTRESS. 12/03/17 15:26 Vital Signs Temperature 96.7 F L 12/03/17 13:38 Pulse Rate 104 H 12/03/17 13:38 Respiratory Rate 18 12/03/17 13:38 Blood Pressure 119/72 12/03/17 13:38 O2 Sat by Pulse Oximetry (%) Laboratory Tests 12/01/17 12/01/17 12/01/17 05:55 07:00 07:30 WBC RBC Hgb Hct MCV MCH MCHC RDW Plt Count MPV Sodium Potassium Chloride Carbon Dioxide Anion Gap BUN Creatinine Creat Clearance w eGFR POC Glucometer 112 Random Glucose Calcium Total Bilirubin AST ALT Alkaline Phosphatase Total Protein Albumin Urine Color Ltyellow Urine Appearance Clear Urine pH 7.0 D Ur Specific [place] 1.021 Urine Protein Negative Urine Glucose (UA) Negative Urine Ketones Negative Urine Blood Negative Urine Nitrite Negative Urine Bilirubin Negative Urine Urobilinogen 2.0 Ur Leukocyte Esterase Negative Valproic Acid RPR Titer HIV 1&2 Antibody Screen Negative HIV P24 Antigen Negative 12/01/17 12/01/17 12/01/17 07:30 07:30 07:30 WBC 4.9 D RBC 3.72 L Hgb 11.7 D Hct 34.3 L MCV 92.1 MCH 31.5 MCHC 34.2 RDW 16.5 H Plt Count 305 D MPV 8.6 Sodium 144 Potassium 3.9 Chloride 108 H Carbon Dioxide 28 Anion Gap 8 BUN 17 D Creatinine 0.9 Creat Clearance w eGFR > 60 POC Glucometer Random Glucose 121 H D Calcium 8.1 L Total Bilirubin 0.3 AST 20 ALT 20 Alkaline Phosphatase 67 Total Protein 6.9 Albumin 2.8 L Urine Color Urine Appearance Urine pH Ur Specific [place] Urine Protein Urine Glucose (UA) Urine Ketones Urine Blood Urine Nitrite Urine Bilirubin Urine Urobilinogen Ur Leukocyte Esterase Valproic Acid RPR Titer Nonreactive HIV 1&2 Antibody Screen HIV P24 Antigen 12/01/17 12/02/17 12/02/17 16:20 05:44 16:28 WBC RBC Hgb Hct MCV MCH MCHC RDW Plt Count MPV Sodium Potassium Chloride Carbon Dioxide Anion Gap BUN Creatinine Creat Clearance w eGFR POC Glucometer 156 116 157 Random Glucose Calcium Total Bilirubin AST ALT Alkaline Phosphatase Total Protein Albumin Urine Color Urine Appearance Urine pH Ur Specific [place] Urine Protein Urine Glucose (UA) Urine Ketones Urine Blood Urine Nitrite Urine Bilirubin Urine Urobilinogen Ur Leukocyte Esterase Valproic Acid RPR Titer HIV 1&2 Antibody Screen HIV P24 Antigen 12/03/17 12/03/17 06:08 07:00 WBC RBC Hgb Hct MCV MCH MCHC RDW Plt Count MPV Sodium Potassium Chloride Carbon Dioxide Anion Gap BUN Creatinine Creat Clearance w eGFR POC Glucometer 93 Random Glucose Calcium Total Bilirubin AST ALT Alkaline Phosphatase Total Protein Albumin Urine Color Urine Appearance Urine pH Ur Specific [place] Urine Protein Urine Glucose (UA) Urine Ketones Urine Blood Urine Nitrite Urine Bilirubin Urine Urobilinogen Ur Leukocyte Esterase Valproic Acid 43.909 L RPR Titer HIV 1&2 Antibody Screen HIV P24 Antigen LABS NOTED. Assessment: 12/03/17 15:26 WITHDRAWAL SYMPTOMS. Plan: CONTINUE DETOX. INCREASE DAILY PO FLUID INTAKE.
[2017-12-03] MEDS: QUEtiapine FUMARATE 200 MG TABLET PO SCH (22:59)
[2017-12-03] MEDS: THIAMINE HCL 100 MG TABLET (FP) PO SCH (23:19)
[2017-12-03] MEDS: LATANOPROST 0.005% OPHTH SOLN 2.5ML BOTTLE OU SCH (23:19)
[2017-12-04] MEDS: chlordiazePOXIDE HCL 10 MG CAPSULE PO SCH ×2 (07:10→10:45)
[2017-12-04] MEDS: metFORMIN HCL 500 MG TABLET (FP) PO SCH (07:38)
[2017-12-04] MEDS: glipiZIDE 10 MG TABLET (FP) PO SCH (07:38)
[2017-12-04] MEDS: HYDROCHLOROTHIAZIDE 25 MG TABLET (FP) PO SCH (10:44)
[2017-12-04] MEDS: DIVALPROEX SODIUM 500 MG TABLET E.C. PO SCH (10:44)
[2017-12-04] MEDS: AMMONIUM LACTATE 12% LOTION 225 GM BOTTLE TP SCH (10:44)
[2017-12-04] MEDS: BRIMONIDINE TARTRATE 0.2% OPHTHALMIC 5 ML BOTTLE OU SCH (10:44)
[2017-12-04] MEDS: ASPIRIN 81 MG CHEWABLE TABLETS PO SCH (10:44)
[2017-12-04] MEDS: PRENATAL VITAMINS W/ FOLIC ACID TABLET (FP) PO SCH (10:45)
[2017-12-04] MEDS: NICOTINE 14 MG/24 HOURS TOPICAL PATCH TD SCH (10:45)
[2017-12-04] MEDS: QUEtiapine FUMARATE 100 MG TABLET (FP) PO SCH (10:45)
[2017-12-04 11:10] VITALS: BP 136/78; PULSE 102; TEMP 96.1
--- NOTE | 2017-12-04 16:32 | DS ---
[facility] Detox Discharge Summary Admission Date: 11/30/17 Discharge Date: 12/04/17 - History Present History: Alcohol Dependence, Cannabis Dependence, Cocaine Dependence Additional Comments: PATIENT GOING TO [facility] ([place], [place] FOR AFTERCARE. PATIENT DECLINED DISCHARGE MEDICATION PRESCRIPTIONS AT TIME OF DISCHARGE FROM DETOX. PATIENT WAS DISCHARGED FROM DETOX UNIT IN STABLE MEDICAL CONDITION. Pertinent Past History: Asthma, Glaucoma, Type II DM, Hyperlipidemia, Schizophrenia (Paranoid), Depression, Nicotine Dependence, Insomnia, History of Positive PPD. - Physical Exam Results Vital Signs: Vital Signs Temperature 96.1 F L 12/04/17 11:09 Pulse Rate 102 H 12/04/17 11:09 Respiratory Rate 80 H 12/04/17 11:09 Blood Pressure 136/78 12/04/17 11:09 O2 Sat by Pulse Oximetry (%) Pertinent Admission Physical Exam Findings: WITHDRAWAL SYMPTOMS. Laboratory Tests 12/01/17 12/01/17 12/01/17 05:55 07:00 07:30 WBC RBC Hgb Hct MCV MCH MCHC RDW Plt Count MPV Sodium Potassium Chloride Carbon Dioxide Anion Gap BUN Creatinine Creat Clearance w eGFR POC Glucometer 112 Random Glucose Calcium Total Bilirubin AST ALT Alkaline Phosphatase Total Protein Albumin Urine Color Ltyellow Urine Appearance Clear Urine pH 7.0 D Ur Specific [place] 1.021 Urine Protein Negative Urine Glucose (UA) Negative Urine Ketones Negative Urine Blood Negative Urine Nitrite Negative Urine Bilirubin Negative Urine Urobilinogen 2.0 Ur Leukocyte Esterase Negative Valproic Acid RPR Titer HIV 1&2 Antibody Screen Negative HIV P24 Antigen Negative 12/01/17 12/01/17 12/01/17 07:30 07:30 07:30 WBC 4.9 D RBC 3.72 L Hgb 11.7 D Hct 34.3 L MCV 92.1 MCH 31.5 MCHC 34.2 RDW 16.5 H Plt Count 305 D MPV 8.6 Sodium 144 Potassium 3.9 Chloride 108 H Carbon Dioxide 28 Anion Gap 8 BUN 17 D Creatinine 0.9 Creat Clearance w eGFR > 60 POC Glucometer Random Glucose 121 H D Calcium 8.1 L Total Bilirubin 0.3 AST 20 ALT 20 Alkaline Phosphatase 67 Total Protein 6.9 Albumin 2.8 L Urine Color Urine Appearance Urine pH Ur Specific [place] Urine Protein Urine Glucose (UA) Urine Ketones Urine Blood Urine Nitrite Urine Bilirubin Urine Urobilinogen Ur Leukocyte Esterase Valproic Acid RPR Titer Nonreactive HIV 1&2 Antibody Screen HIV P24 Antigen 12/01/17 12/02/17 12/02/17 16:20 05:44 16:28 WBC RBC Hgb Hct MCV MCH MCHC RDW Plt Count MPV Sodium Potassium Chloride Carbon Dioxide Anion Gap BUN Creatinine Creat Clearance w eGFR POC Glucometer 156 116 157 Random Glucose Calcium Total Bilirubin AST ALT Alkaline Phosphatase Total Protein Albumin Urine Color Urine Appearance Urine pH Ur Specific [place] Urine Protein Urine Glucose (UA) Urine Ketones Urine Blood Urine Nitrite Urine Bilirubin Urine Urobilinogen Ur Leukocyte Esterase Valproic Acid RPR Titer HIV 1&2 Antibody Screen HIV P24 Antigen 12/03/17 12/03/17 12/04/17 06:08 07:00 06:30 WBC RBC Hgb Hct MCV MCH MCHC RDW Plt Count MPV Sodium Potassium Chloride Carbon Dioxide Anion Gap BUN Creatinine Creat Clearance w eGFR POC Glucometer 93 126 Random Glucose Calcium Total Bilirubin AST ALT Alkaline Phosphatase Total Protein Albumin Urine Color Urine Appearance Urine pH Ur Specific [place] Urine Protein Urine Glucose (UA) Urine Ketones Urine Blood Urine Nitrite Urine Bilirubin Urine Urobilinogen Ur Leukocyte Esterase Valproic Acid 43.909 L RPR Titer HIV 1&2 Antibody Screen HIV P24 Antigen LABS NOTED. - Treatment Hospital Course: Detox Protocol Followed, Detoxed Safely, Responded well, Discharged Condition Good, Rehab Referral Accepted Patient has Accepted a Rehab Referral to: [facility] ([place], [place] - Medication Discharge Medications: Ambulatory Orders Divalproex [Depakote -] 500 mg PO BID 05/21/15 Brimonidine Tartrate [Alphagan 0.2% -] 1 drop OP BID 11/29/15 Risperidone [Risperdal] 2 mg PO BID 11/29/15 Albuterol Sulfate Inhaler - [Ventolin HFA Inhaler -] 2 inh IH Q4H PRN #1 inhaler 12/26/15 Aspirin [ASA -] 81 mg PO DAILY #30 tab.chew 12/26/15 Glipizide [Glucotrol -] 10 mg PO BIDAC #60 tablet 12/26/15 Latanoprost 0.005% Eye Drops [Xalatan 0.005% Eye Drops -] 1 drop OP HS #1 drops 12/26/15 metFORMIN HCL [Glucophage -] 500 mg PO BID@0700,1630 #60 tablet 12/26/15 Benztropine Mesylate [Cogentin -] 0.5 mg PO BID #30 tablet 12/27/15 Mirtazapine [Remeron -] 15 mg PO HS #30 tablet 12/27/15 Quetiapine Fumarate [Seroquel -] 300 mg PO HS 07/24/17 Divalproex [Depakote -] 500 mg PO BID #60 tablet.ec 12/02/17 Quetiapine Fumarate [Seroquel -] 300 mg PO HS #30 tab 12/02/17 - Diagnosis (1) Alcohol dependence with uncomplicated withdrawal Status: Acute (2) Cannabis dependence Status: Acute (3) Cocaine dependence, uncomplicated Status: Acute (4) Glaucoma Status: Chronic (5) HLD (hyperlipidemia) Status: Chronic Qualifiers: Hyperlipidemia type: unspecified Qualified Code(s): E78.5 - Hyperlipidemia , unspecified (6) HTN (hypertension) Status: Chronic Qualifiers: Hypertension type: essential hypertension Qualified Code(s): I10 - Essential (primary) hypertension (7) Nicotine dependence Status: Acute Qualifiers: Nicotine product type: cigarettes Substance use status: in withdrawal Qualified Code(s): F17.213 - Nicotine dependence, cigarettes, with withdrawal (8) Type 2 diabetes mellitus with hyperglycemia Status: Chronic Qualifiers: Diabetes mellitus correction insulin use: without correction use Qualified Code(s): E11.65 - Type 2 diabetes mellitus with hyperglycemia (9) Depression Status: Chronic Qualifiers: Depression Type: unspecified Qualified Code(s): F32.9 - Major depressive disorder, single episode, unspecified (10) Asthma Status: Chronic (11) PPD positive Status: Chronic (12) Insomnia Status: Acute Qualifiers: Insomnia type: unspecified Qualified Code(s): G47.00 - Insomnia, unspecified (13) Paranoid schizophrenia Status: Chronic - AMA Did Patient Leave Against Medical Advice: No
== END 2017-12-04 11:20 | disposition home or self-care (01) | DRG 774 ==
LOC: YASAS 19:09 → Y3N 23:41
PROVIDERS: ADMIT Internal Medicine; ATTEND Internal Medicine
PROC: HZ2ZZZZ Detoxification Services for Substance Abuse Treatment (ICD-10-PCS; principal; 2017-11-30)
DX: F10.230 Alcohol dependence with withdrawal, uncomplicated (principal); F14.20 Cocaine dependence, uncomplicated; F12.20 Cannabis dependence, uncomplicated; F17.210 Nicotine dependence, cigarettes, uncomplicated; F20.0 Paranoid schizophrenia; F32.9 Major depressive disorder, single episode, unspecified; G47.00 Insomnia, unspecified; J45.909 Unspecified asthma, uncomplicated; E78.5 Hyperlipidemia, unspecified; E11.9 Type 2 diabetes mellitus without complications; Z79.84 Long term (current) use of oral hypoglycemic drugs; H40.9 Unspecified glaucoma; R76.11 Nonspecific reaction to tuberculin skin test without active tuberculosis
CPT/HCPCS: 36415; 71046-TC-FY; 80053; 80164; 81003; 82962; 85027; 86593; 87389; 93005; 93010

== ENCOUNTER 2018-01-06 20:40 | Inpatient (IN) | payer OTHER ==
[2018-01-06 21:29] VITALS: BMI 28.1
[2018-01-06] MEDS ORDERED: MELATONIN 5 MG TABLETS PO PRN (22:00)
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
[2018-01-06] MEDS ORDERED: LOPERAMIDE HCL 2 MG CAPSULE PO PRN (22:38)
[2018-01-06] MEDS ORDERED: guaiFENesin/D-METHORPHAN HB 10 ML UNIT-DOSE CUPS PO PRN (22:38)
[2018-01-06] MEDS ORDERED: chlordiazePOXIDE HCL 25 MG CAPSULE PO PRN (22:38)
[2018-01-06] MEDS ORDERED: MENTHOL/PHENOL 1 EACH UD MM PRN (22:38)
[2018-01-06] MEDS ORDERED: NICOTINE POLACRILEX 2 MG GUM BC PRN (22:38)
[2018-01-06] MEDS ORDERED: MAG HYDROX/AL HYDROX/SIMETH 30 ML UNIT-DOSE CUP PO PRN (22:38)
[2018-01-06] MEDS ORDERED: P-EPHED 60MG/TRIPROLIDI 2.5MG TABLET PO PRN (22:38)
[2018-01-06] MEDS ORDERED: IBUPROFEN 400 MG TABLET (FP) PO PRN (22:38)
[2018-01-06] MEDS ORDERED: ACETAMINOPHEN 325 MG TABLET (FP) PO PRN (22:38)
[2018-01-06] MEDS ORDERED: MAGNESIUM CITRATE 300 ML BOTTLE PO PRN (22:38)
[2018-01-06] MEDS ORDERED: MAGNESIUM HYDROX 2400MG/30ML ORAL SUSPENSION 30 ML CUP PO PRN (22:38)
[2018-01-06] MEDS ORDERED: ALBUTEROL SO4 18 GM HFA INHALER IH PRN (22:40)
[2018-01-07] MEDS: chlordiazePOXIDE HCL 25 MG CAPSULE PO SCH ×5 (00:02→22:29)
[2018-01-07 00:13] LABS: URINE APPEARANCE CLEAR; URINE BILIRUBIN NEGATIVE (<2.0 mg/dL); URINE BLOOD NEGATIVE (NEGATIVE); URINE COLOR YELLOW; URINE GLUCOSE (UA) NEGATIVE (NEGATIVE); URINE KETONE NEGATIVE (NEGATIVE); URINE LEUK ESTERASE TRACE (NEGATIVE); URINE NITRITE NEGATIVE (NEGATIVE); URINE PROTEIN NEGATIVE (NEGATIVE)
[2018-01-07 00:18] LABS: URINE BACTERIA RARE /hpf (NONE SEEN); URINE MUCUS RARE
[2018-01-07] MEDS: glipiZIDE 10 MG TABLET (FP) PO SCH ×2 (09:58→17:26)
[2018-01-07] MEDS: metFORMIN HCL 500 MG TABLET (FP) PO SCH ×2 (09:58→17:26)
[2018-01-07 10:18] LABS: HEMATOCRIT 40.9 % (35.4-49); HEMOGLOBIN 13.6 GM/dL (11.7-16.9); MCH 31.1 pg (25.7-33.7); MCHC 33.4 g/dl (32.0-35.9); MEAN CELL VOLUME 93.1 fl (80-96); MEAN PLT VOLUME 9.2 fl (7.5-11.1); PLATELET COUNT 278 K/MM3 (134-434); RBC 4.39 M/mm3 (4.00-5.60); RDW 15.4 % (11.9-15.9); WHITE BLOOD COUNT 7.4 K/mm3 (4.0-10.0)
[2018-01-07] MEDS: BRIMONIDINE TARTRATE 0.2% OPHTHALMIC 5 ML BOTTLE OU SCH ×2 (10:40→22:30)
[2018-01-07] MEDS: ASPIRIN 81 MG CHEWABLE TABLETS PO SCH (10:40)
[2018-01-07] MEDS: PRENATAL VITAMINS W/ FOLIC ACID TABLET (FP) PO SCH (10:40)
[2018-01-07] MEDS: NICOTINE 14 MG/24 HOURS TOPICAL PATCH TD SCH (10:40)
[2018-01-07] MEDS: DIVALPROEX SODIUM 500 MG TABLET E.C. PO SCH ×2 (10:40→22:29)
[2018-01-07 10:46] LABS: CHLORIDE 107 mmol/L (98-107); POTASSIUM 4.4 mmol/L (3.5-5.1); SODIUM 141 mmol/L (136-145)
[2018-01-07] MEDS ORDERED: NAPROXEN 375 MG TABLET (FP) PO ONE (10:55)
--- NOTE | 2018-01-07 11:15 | EKG ---
Test Reason : Blood Pressure : / mmHG Vent. Rate : 069 BPM Atrial Rate : 069 BPM P-R Int : 136 ms QRS Dur : 098 ms QT Int : 414 ms P-R-T Axes : 076 064 022 degrees QTc Int : 443 ms NORMAL SINUS RHYTHM NORMAL ECG WHEN COMPARED WITH ECG OF 01-DEC-2017 02:24, NO SIGNIFICANT CHANGE WAS FOUND Confirmed by KOLTON MARTINEZ MD ([id number]) on 01/07/2018 11:14:48 AM Referred By: Confirmed By:KOLTON MARTINEZ MD
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
[2018-01-07 11:19] LABS: ALBUMIN 3.2 g/dl (3.4-5.0); ALK PHOS 76 U/L (45-117); ANION GAP 8 (8-16); BILIRUBIN,TOTAL 0.2 mg/dL (0.2-1.0); BLOOD UREA NITROGEN 11 mg/dL (7-18); CALCIUM 9.1 mg/dL (8.5-10.1); CO2 26 mmol/L (21-32); CREATININE 0.9 mg/dL (0.7-1.3); GLUCOSE,RANDOM 86 mg/dL (74-106); SGOT/AST 22 U/L (15-37); SGPT/ALT 23 U/L (12-78); TOT PROT 7.9 g/dl (6.4-8.2)
[2018-01-07] MEDS: QUEtiapine FUMARATE 100 MG TABLET (FP) PO SCH ×2 (11:29→22:30)
--- NOTE | 2018-01-07 12:48 | PN ---
S CIWA - CIWA Score Nausea/Vomitin Muscle Tremors: 4-Moderate,w/Arms Extend Anxiety: 3 Agitation: 1-Slight > Activity Paroxysmal Sweats: 3 Orientation: 0-Oriented Tacttile Disturbances: 0-None Auditory Disturbances: 1-Very Mild Visual Disturbances: 2-Mild Sensitivity Headache: 0-None Present CIWA-Ar Total Score: 19 S Progress Note (SOAP) Subjective: Tremors, Sweating, Body Aches, Vomiting. Objective: PATIENT A & O X 3, OBSERVED AMBULATING ON UNIT. NO ACUTE DISTRESS. 01/07/18 12:47 Vital Signs Temperature 97.6 F 01/07/18 09:47 Pulse Rate 83 01/07/18 09:47 Respiratory Rate 20 01/07/18 09:47 Blood Pressure 119/72 01/07/18 09:47 O2 Sat by Pulse Oximetry (%) Laboratory Tests 01/06/18 01/06/18 01/07/18 21:57 23:50 06:02 WBC RBC Hgb Hct MCV MCH MCHC RDW Plt Count MPV Sodium Potassium Chloride Carbon Dioxide Anion Gap BUN Creatinine Creat Clearance w eGFR POC Glucometer 108 131 Random Glucose Calcium Total Bilirubin AST ALT Alkaline Phosphatase Total Protein Albumin Urine Color Yellow Urine Appearance Clear Urine pH 6.0 Ur Specific [place] 1.020 Urine Protein Negative Urine Glucose (UA) Negative Urine Ketones Negative Urine Blood Negative Urine Nitrite Negative Urine Bilirubin Negative Urine Urobilinogen 2.0 Ur Leukocyte Esterase Trace Urine WBC (Auto) 1 Urine RBC (Auto) 11 Urine Bacteria Rare Urine Mucus Rare 01/07/18 01/07/18 08:50 08:50 WBC 7.4 D RBC 4.39 Hgb 13.6 D Hct 40.9 D MCV 93.1 MCH 31.1 MCHC 33.4 RDW 15.4 Plt Count 278 MPV 9.2 Sodium 141 Potassium 4.4 Chloride 107 Carbon Dioxide 26 Anion Gap 8 BUN 11 D Creatinine 0.9 Creat Clearance w eGFR > 60 POC Glucometer Random Glucose 86 D Calcium 9.1 Total Bilirubin 0.2 D AST 22 ALT 23 Alkaline Phosphatase 76 Total Protein 7.9 Albumin 3.2 L Urine Color Urine Appearance Urine pH Ur Specific [place] Urine Protein Urine Glucose (UA) Urine Ketones Urine Blood Urine Nitrite Urine Bilirubin Urine Urobilinogen Ur Leukocyte Esterase Urine WBC (Auto) Urine RBC (Auto) Urine Bacteria Urine Mucus LABS NOTED. RPR RESULT PENDING. 01/07/18 12:47 Assessment: 01/07/18 12:47 WITHDRAWAL SYMPTOMS. Plan: CONTINUE DETOX. INCREASE DAILY PO FLUID INTAKE.
[2018-01-07] MEDS ORDERED: LATANOPROST 0.005% OPHTH SOLN 2.5ML BOTTLE OU SCH (22:00)
[2018-01-07] MEDS ORDERED: THIAMINE HCL 100 MG TABLET (FP) PO SCH (22:00)
[2018-01-07] MEDS: NAPROXEN 375 MG TABLET (FP) PO SCH (22:31)
[2018-01-08] MEDS: chlordiazePOXIDE HCL 25 MG CAPSULE PO SCH ×3 (05:43→17:34)
[2018-01-08] MEDS: glipiZIDE 10 MG TABLET (FP) PO SCH ×2 (06:20→17:34)
[2018-01-08] MEDS: metFORMIN HCL 500 MG TABLET (FP) PO SCH ×2 (06:20→17:34)
[2018-01-08] MEDS: BRIMONIDINE TARTRATE 0.2% OPHTHALMIC 5 ML BOTTLE OU SCH (10:26)
[2018-01-08] MEDS: NAPROXEN 375 MG TABLET (FP) PO SCH (10:27)
[2018-01-08] MEDS: DIVALPROEX SODIUM 500 MG TABLET E.C. PO SCH (10:27)
[2018-01-08] MEDS: ASPIRIN 81 MG CHEWABLE TABLETS PO SCH (10:27)
[2018-01-08] MEDS: NICOTINE 14 MG/24 HOURS TOPICAL PATCH TD SCH (10:27)
[2018-01-08] MEDS: QUEtiapine FUMARATE 100 MG TABLET (FP) PO SCH (10:27)
[2018-01-08] MEDS: PRENATAL VITAMINS W/ FOLIC ACID TABLET (FP) PO SCH (10:27)
--- NOTE | 2018-01-08 16:08 | PN ---
[facility] CIWA - CIWA Score Nausea/Vomitin-No Nausea/No Vomiting Muscle Tremors: 3 Anxiety: 4-Mod. Anxious/Guarded Agitation: 3 Paroxysmal Sweats: 3 Orientation: 0-Oriented Tacttile Disturbances: 1-Very Mild Itch/Numbness Auditory Disturbances: 0-None Visual Disturbances: 1-Very Mild Sensitivity Headache: 0-None Present CIWA-Ar Total Score: 15 S Progress Note (SOAP) Subjective: Tremors, Constipation, Sweating, Body Aches. Objective: PATIENT A & O X 3, OBSERVED AMBULATING ON UNIT. NO ACUTE DISTRESS. 01/08/18 16:06 Vital Signs Temperature 97.5 F L 01/08/18 14:05 Pulse Rate 89 01/08/18 14:05 Respiratory Rate 18 01/08/18 14:05 Blood Pressure 126/80 01/08/18 14:05 O2 Sat by Pulse Oximetry (%) Laboratory Tests 01/06/18 01/06/18 01/07/18 21:57 23:50 06:02 WBC RBC Hgb Hct MCV MCH MCHC RDW Plt Count MPV Sodium Potassium Chloride Carbon Dioxide Anion Gap BUN Creatinine Creat Clearance w eGFR POC Glucometer 108 131 Random Glucose Calcium Total Bilirubin AST ALT Alkaline Phosphatase Total Protein Albumin Urine Color Yellow Urine Appearance Clear Urine pH 6.0 Ur Specific [place] 1.020 Urine Protein Negative Urine Glucose (UA) Negative Urine Ketones Negative Urine Blood Negative Urine Nitrite Negative Urine Bilirubin Negative Urine Urobilinogen 2.0 Ur Leukocyte Esterase Trace Urine WBC (Auto) 1 Urine RBC (Auto) 11 Urine Bacteria Rare Urine Mucus Rare Valproic Acid RPR Titer HIV 1&2 Antibody Screen HIV P24 Antigen 01/07/18 01/07/18 01/07/18 08:50 08:50 08:50 WBC 7.4 D RBC 4.39 Hgb 13.6 D Hct 40.9 D MCV 93.1 MCH 31.1 MCHC 33.4 RDW 15.4 Plt Count 278 MPV 9.2 Sodium 141 Potassium 4.4 Chloride 107 Carbon Dioxide 26 Anion Gap 8 BUN 11 D Creatinine 0.9 Creat Clearance w eGFR > 60 POC Glucometer Random Glucose 86 D Calcium 9.1 Total Bilirubin 0.2 D AST 22 ALT 23 Alkaline Phosphatase 76 Total Protein 7.9 Albumin 3.2 L Urine Color Urine Appearance Urine pH Ur Specific [place] Urine Protein Urine Glucose (UA) Urine Ketones Urine Blood Urine Nitrite Urine Bilirubin Urine Urobilinogen Ur Leukocyte Esterase Urine WBC (Auto) Urine RBC (Auto) Urine Bacteria Urine Mucus Valproic Acid RPR Titer HIV 1&2 Antibody Screen Negative HIV P24 Antigen Negative 01/07/18 01/07/18 01/08/18 08:50 16:16 05:45 WBC RBC Hgb Hct MCV MCH MCHC RDW Plt Count MPV Sodium Potassium Chloride Carbon Dioxide Anion Gap BUN Creatinine Creat Clearance w eGFR POC Glucometer 131 170 Random Glucose Calcium Total Bilirubin AST ALT Alkaline Phosphatase Total Protein Albumin Urine Color Urine Appearance Urine pH Ur Specific [place] Urine Protein Urine Glucose (UA) Urine Ketones Urine Blood Urine Nitrite Urine Bilirubin Urine Urobilinogen Ur Leukocyte Esterase Urine WBC (Auto) Urine RBC (Auto) Urine Bacteria Urine Mucus Valproic Acid RPR Titer Nonreactive HIV 1&2 Antibody Screen HIV P24 Antigen 01/08/18 06:00 WBC RBC Hgb Hct MCV MCH MCHC RDW Plt Count MPV Sodium Potassium Chloride Carbon Dioxide Anion Gap BUN Creatinine Creat Clearance w eGFR POC Glucometer Random Glucose Calcium Total Bilirubin AST ALT Alkaline Phosphatase Total Protein Albumin Urine Color Urine Appearance Urine pH Ur Specific [place] Urine Protein Urine Glucose (UA) Urine Ketones Urine Blood Urine Nitrite Urine Bilirubin Urine Urobilinogen Ur Leukocyte Esterase Urine WBC (Auto) Urine RBC (Auto) Urine Bacteria Urine Mucus Valproic Acid 3.6 L RPR Titer HIV 1&2 Antibody Screen HIV P24 Antigen LABS NOTED. Assessment: 01/08/18 16:07 WITHDRAWAL SYMPTOMS. Plan: CONTINUE DETOX. INCREASE DAILY PO FLUID INTAKE. PRN MOM FOR CONSTIPATION.
[2018-01-08 19:02] VITALS: BP 128/81; PULSE 82; TEMP 97.6
--- NOTE | 2018-01-08 20:48 | DS ---
[facility] Detox Discharge Summary Admission Date: 01/06/18 Discharge Date: 01/08/18 - History Additional Comments: Patient states," I have urgent family problem that needs my attention ". Patient is leaving against medical advice for personal reasons. Pertinent Past History: Alcohol and opioids withdrawal symptoms - Physical Exam Results Vital Signs: Vital Signs Temperature 97.6 F 01/08/18 19:01 Pulse Rate 82 01/08/18 19:01 Respiratory Rate 18 01/08/18 19:01 Blood Pressure 128/81 01/08/18 19:01 O2 Sat by Pulse Oximetry (%) Laboratory Last Values WBC 7.4 K/mm3 (4.0-10.0) D 01/07/18 08:50 RBC 4.39 M/mm3 (4.00-5.60) 01/07/18 08:50 Hgb 13.6 GM/dL (11.7-16.9) D 01/07/18 08:50 Hct 40.9 % (35.4-49) D 01/07/18 08:50 MCV 93.1 fl (80-96) 01/07/18 08:50 MCH 31.1 pg (25.7-33.7) 01/07/18 08:50 MCHC 33.4 g/dl (32.0-35.9) 01/07/18 08:50 RDW 15.4 % (11.9-15.9) 01/07/18 08:50 Plt Count 278 K/MM3 (134-434) 01/07/18 08:50 MPV 9.2 fl (7.5-11.1) 01/07/18 08:50 Sodium 141 mmol/L (136-145) 01/07/18 08:50 Potassium 4.4 mmol/L (3.5-5.1) 01/07/18 08:50 Chloride 107 mmol/L (98-107) 01/07/18 08:50 Carbon Dioxide 26 mmol/L (21-32) 01/07/18 08:50 Anion Gap 8 (8-16) 01/07/18 08:50 BUN 11 mg/dL (7-18) D 01/07/18 08:50 Creatinine 0.9 mg/dL (0.7-1.3) 01/07/18 08:50 Creat Clearance w eGFR > 60 (>60) 01/07/18 08:50 POC Glucometer 217 UNITS (80-120) 01/08/18 16:36 Random Glucose 86 mg/dL (74-106) D 01/07/18 08:50 Calcium 9.1 mg/dL (8.5-10.1) 01/07/18 08:50 Total Bilirubin 0.2 mg/dL (0.2-1.0) D 01/07/18 08:50 AST 22 U/L (15-37) 01/07/18 08:50 ALT 23 U/L (12-78) 01/07/18 08:50 Alkaline Phosphatase 76 U/L (45-117) 01/07/18 08:50 Total Protein 7.9 g/dl (6.4-8.2) 01/07/18 08:50 Albumin 3.2 g/dl (3.4-5.0) L 01/07/18 08:50 Urine Color Yellow 01/06/18 23:50 Urine Appearance Clear 01/06/18 23:50 Urine pH 6.0 (5.0-8.0) 01/06/18 23:50 Ur Specific [place] 1.020 (1.001-1.035) 01/06/18 23:50 Urine Protein Negative (NEGATIVE) 01/06/18 23:50 Urine Glucose (UA) Negative (NEGATIVE) 01/06/18 23:50 Urine Ketones Negative (NEGATIVE) 01/06/18 23:50 Urine Blood Negative (NEGATIVE) 01/06/18 23:50 Urine Nitrite Negative (NEGATIVE) 01/06/18 23:50 Urine Bilirubin Negative (<2.0 mg/dL) 01/06/18 23:50 Urine Urobilinogen 2.0 mg/dL (0.2-1.0) 01/06/18 23:50 Ur Leukocyte Esterase Trace (NEGATIVE) 01/06/18 23:50 Urine WBC (Auto) 1 /hpf (3-5) 01/06/18 23:50 Urine RBC (Auto) 11 /hpf (0-3) 01/06/18 23:50 Urine Bacteria Rare /hpf (NONE SEEN) 01/06/18 23:50 Urine Mucus Rare 01/06/18 23:50 Valproic Acid 3.6 ug/ml (50-100) L 01/08/18 06:00 RPR Titer Nonreactive (NONREACTIVE) 01/07/18 08:50 HIV 1&2 Antibody Screen Negative 01/07/18 08:50 HIV P24 Antigen Negative 01/07/18 08:50 Pertinent Admission Physical Exam Findings: alcohol, cocaine, cannabis, Heroin dependence - Medication Discharge Medications: Ambulatory Orders Divalproex [Depakote -] 500 mg PO BID 05/21/15 Brimonidine Tartrate [Alphagan 0.2% -] 1 drop OP BID 11/29/15 Risperidone [Risperdal] 10 mg PO BID 11/29/15 Albuterol Sulfate Inhaler - [Ventolin HFA Inhaler -] 2 inh IH Q4H PRN #1 inhaler 12/26/15 Aspirin [ASA -] 81 mg PO DAILY #30 tab.chew 12/26/15 Glipizide [Glucotrol -] 10 mg PO BIDAC #60 tablet 12/26/15 Latanoprost 0.005% Eye Drops [Xalatan 0.005% Eye Drops -] 1 drop OP HS #1 drops 12/26/15 metFORMIN HCL [Glucophage -] 500 mg PO BID@0700,1630 #60 tablet 12/26/15 Benztropine Mesylate [Cogentin -] 0.5 mg PO BID #30 tablet 12/27/15 Mirtazapine [Remeron -] 15 mg PO HS #30 tablet 12/27/15 Quetiapine Fumarate [Seroquel -] 400 mg PO HS 07/24/17 Divalproex [Depakote -] 500 mg PO BID #60 tablet.ec 12/02/17 Quetiapine Fumarate [Seroquel] 100 mg PO DAILY 01/06/18 - Diagnosis (1) Alcohol dependence with uncomplicated withdrawal Current Visit: Yes Status: Acute (2) Cannabis dependence Current Visit: Yes Status: Chronic (3) Cocaine dependence, uncomplicated Current Visit: Yes Status: Chronic (4) Nicotine dependence Current Visit: Yes Status: Chronic Qualifiers: Nicotine product type: cigarettes Substance use status: in withdrawal Qualified Code(s): F17.213 - Nicotine dependence, cigarettes, with withdrawal (5) Asthma Current Visit: Yes Status: Chronic (6) Depression Current Visit: Yes Status: Chronic Qualifiers: Depression Type: unspecified Qualified Code(s): F32.9 - Major depressive disorder, single episode, unspecified (7) Glaucoma Current Visit: Yes Status: Chronic (8) HLD (hyperlipidemia) Current Visit: Yes Status: Chronic Qualifiers: Hyperlipidemia type: unspecified Qualified Code(s): E78.5 - Hyperlipidemia , unspecified (9) HTN (hypertension) Current Visit: Yes Status: Chronic Qualifiers: Hypertension type: essential hypertension Qualified Code(s): I10 - Essential (primary) hypertension (10) PPD positive Current Visit: Yes Status: Chronic - AMA Did Patient Leave Against Medical Advice: Yes
[2018-01-08] MEDS ORDERED: chlordiazePOXIDE 5 MG CAPSULE PO SCH (23:00)
[2018-01-09] MEDS ORDERED: chlordiazePOXIDE HCL 10 MG CAPSULE PO SCH (23:00)
== END 2018-01-08 20:35 | disposition left against medical advice (07) | DRG 770 ==
LOC: YASAS 20:40 → Y3N 22:48
PROVIDERS: ADMIT Family Medicine Addiction Medicine; ATTEND Family Medicine Addiction Medicine
PROC: HZ2ZZZZ Detoxification Services for Substance Abuse Treatment (ICD-10-PCS; principal; 2018-01-06)
DX: F10.230 Alcohol dependence with withdrawal, uncomplicated (principal); F14.20 Cocaine dependence, uncomplicated; F12.20 Cannabis dependence, uncomplicated; F17.213 Nicotine dependence, cigarettes, with withdrawal; F32.9 Major depressive disorder, single episode, unspecified; I10 Essential (primary) hypertension; E78.5 Hyperlipidemia, unspecified; J45.909 Unspecified asthma, uncomplicated; H40.9 Unspecified glaucoma; R76.11 Nonspecific reaction to tuberculin skin test without active tuberculosis; Z88.0 Allergy status to penicillin; Z91.018 Allergy to other foods; Z86.69 Personal history of other diseases of the nervous system and sense organs
CPT/HCPCS: 36415; 80053; 80164; 81003; 81015; 82962; 85027; 86593; 87389; 93005; 93010